=== PATIENT | female | born 1955 | race Caucasian/White ===

== ENCOUNTER 2016-08-05 14:03 | Outpatient (CLI) | payer OTHER ==
--- NOTE | 2016-08-08 20:56 | Mammography Report ---
DIGITAL BILATERAL SCREENING MAMMOGRAM: 08/05/2016 CLINICAL HISTORY: A 60-year-old female in for routine screening mammogram. Patient has no family hi story of breast cancer. Patient has no past history of breast surgeries. COMPARISON: 12/05/2006, 06/01/2011, 06/21/2011, 12/21/2011, 12/12/2012, 02/07/2014, 07/09/2015. TECHNIQUE: Craniocaudad and oblique lateral views of each breast were obtained with [employer] full fie ld digital mammography. FINDINGS: Heterogeneously dense breasts are noted bilaterally. No significant clusters of calcification are seen. No significant masses are noted. No change is se en. IMPRESSION: BREASTS APPEAR RADIOGRAPHICALLY BENIGN. BIRADS CATEGORY: 1, NEGATIVE. RECOMMENDATION: Annual bilateral screening mammography. STANDARD QUALIFYING STATEMENTS 1. This examination was reviewed with the aid of Computed-Aided Detection (CAD). 2. A negative or benign imaging report should not delay biopsy if clinically suspicious findings are present. Consider surgical consultation if warranted. More than 5% of cancers are not identified b y imaging. 3. Dense breasts may obscure an underlying neoplasm. JOB #: [id number] EXT JOB #:[id number]
== END 2016-08-05 14:04 | disposition home or self-care (01) ==
LOC: DI 14:03
PROVIDERS: ATTEND Nurse Practitioner Obstetrics & Gynecology
DX: Z12.31 Encounter for screening mammogram for malignant neoplasm of breast (principal)
CPT/HCPCS: 77067

== ENCOUNTER 2017-09-06 12:38 | Outpatient (CLI) | payer MEDICAID ==
--- NOTE | 2017-09-07 14:57 | Mammography Report ---
Procedure Date: 09/06/2017 Accession Number: [id number] / [id number] Procedure: MEGAN - Screening Mammo Dig Bilat CPT Code: FULL RESULT: EXAM: Screening Mammo Dig Bilat DATE: 09/06/2017 1:07 PM CLINICAL HISTORY: Routine screening TECHNIQUE: Bilateral CC, exaggerated CC and MLO views were obtained. COMPARISON: 08/05/2016, 07/09/2015, 02/07/2014, 12/12/2012 and 12/21/2011 FINDINGS: The breast tissue is heterogeneously dense. There is been no significant interval change. No suspicious masses, skin thickening, clustered microcalcifications, or regions of architectural distortion are identified. IMPRESSION: Negative examination RECOMMENDATION: Routine annual screening unless otherwise clinically indicated. BIRADS CATEGORY 1: Negative STANDARD QUALIFYING STATEMENTS: 1. This examination was reviewed with the aid of Computer-Aided Detection (CAD). 2. A negative or benign imaging report should not delay biopsy if clinically suspicious findings are present. Consider surgical consultation if warrented. More than 5% of cancers are not identified by imaging. 3. Dense breasts may obscure an underlying neoplasm.
== END 2017-09-06 12:39 | disposition home or self-care (01) ==
LOC: DI 12:38
PROVIDERS: ATTEND Nurse Practitioner Family
DX: Z12.31 Encounter for screening mammogram for malignant neoplasm of breast (principal)
CPT/HCPCS: 77067

== ENCOUNTER 2019-11-13 07:49 | Outpatient (CLI) | payer OTHER ==
--- NOTE | 2019-11-20 13:44 | Mammography Report ---
BILATERAL DIGITAL SCREENING MAMMOGRAM 3D/2D: 11/13/2019 CLINICAL: Routine screening. Comparison is made to exams dated: 09/06/2017 mammogram, 08/05/2016 mammogram, 07/09/2015 mammogram, mammogram, 12/21/2011 mammogram, and 12/12/2012 mammogram - [facility]. The tissue of both breasts is heterogeneously dense. This may lower the sensitivity of mammography. No significant masses, calcifications, or other findings are seen in either breast. There has been no significant interval change. IMPRESSION: NEGATIVE There is no mammographic evidence of malignancy. A 1 year screening mammogram is recommended. This exam was interpreted at Station ID: [id number]. NOTE: For mammograms, a report in lay terms will be sent to the patient. Approximately 15% of breast malignancies will not be visualized mammographically. In the management of a palpable breast mass, a negative mammogram must not discourage biopsy of a clinically suspicious lesion. Electronically Signed By: Macario vigli/cris:11/13/2019 09:31:58 ACR BI-RADS Category 1: Negative 3341F PARENCHYMAL PATTERN: (D) - The breast(s) demonstrate(s) heterogeneously dense fibroglandular pankaj humphrey. BI-RADS CATEGORY: (1) - 1 RECOMMENDATION: (ANNUAL) - Recommend routine annual screening mammography. [id number] 1 year screening LATERALITY: (B)
== END 2019-11-13 07:50 | disposition home or self-care (01) ==
LOC: DI 07:49
PROVIDERS: ATTEND Advanced Practice Midwife
DX: Z00.00 Encounter for general adult medical examination without abnormal findings (principal); Z12.31 Encounter for screening mammogram for malignant neoplasm of breast
CPT/HCPCS: 77063; 77067

== ENCOUNTER 2021-02-17 14:50 | Outpatient (CLI) | payer OTHER ==
--- NOTE | 2021-02-18 13:28 | Mammography Report ---
BILATERAL DIGITAL SCREENING MAMMOGRAM 3D/2D WITH EXAGGERATED CC: 02/17/2021 CLINICAL: Routine screening. Comparison is made to exams dated: 11/13/2019 mammogram, 09/06/2017 mammogram, and 08/05/2016 mammogram - [facility]. The tissue of both breasts is heterogeneously dense. This may lower the sensitivity of mammography. No significant masses, calcifications, or other findings are seen in either breast. There has been no significant interval change. IMPRESSION: NEGATIVE There is no mammographic evidence of malignancy. A 1 year screening mammogram is recommended. This exam was interpreted at Station ID: [id number]. NOTE: For mammograms, a report in lay terms will be sent to the patient. Approximately 15% of breast malignancies will not be visualized mammographically. In the management of a palpable breast mass, a negative mammogram must not discourage biopsy of a clinically suspicious lesion. Electronically Signed By: Rizwan Wesley M.D. ar/penrad:02/17/2021 16:29:09 ACR BI-RADS Category 1: Negative 3341F PARENCHYMAL PATTERN: (D) - The breast(s) demonstrate(s) heterogeneously dense fibroglandular pankaj humphrey. BI-RADS CATEGORY: (1) - 1 RECOMMENDATION: (ANNUAL) - Recommend routine annual screening mammography. [id number] 1 year screening LATERALITY: (B)
== END 2021-02-17 14:51 | disposition home or self-care (01) ==
LOC: DI.S 14:50
DX: Z12.31 Encounter for screening mammogram for malignant neoplasm of breast (principal)

== ENCOUNTER 2021-02-24 14:04 | Outpatient (CLI) | payer OTHER ==
--- NOTE | 2021-02-24 14:49 | DEXA Report ---
PROCEDURE: Dexa Spine and/or Hip INDICATIONS: POST MENOPAUSAL TECHNIQUE: Dual energy x-ray absorptiometry (DXA) was performed on a [employer] System. Regions measur ed are the AP Spine, femoral neck, and if needed forearm. COMPARISON: None. FINDINGS: Lumbar Spine: Bone Mineral Density 0.750 g/cm/cm,T score -3.6. Left Hip: Bone Mineral Density 0.682 g/cm/cm,T score -2.6. Left Femoral Neck: Bone Mineral Density 0.684 g/cm/cm, T score -2.5. (T score greater or equal to -1.0: NORMAL) (T score from -1.1 to -2.4: OSTEOPENIA) (T score less than or equal to -2.5 to: OSTEOPOROSIS) Impression: Osteoporosis. Patients with diagnosis of osteoporosis or osteopenia should have regular bone mineral density assess ment. For those eligible for Medicare, routine testing is allowed once every 2 years. Testing frequ ency can be increased for patients who have rapidly progressing disease or for those who are receivin g medical therapy to restore bone mass. Reviewed by: Reed Mendez MD on 02/24/2021 2:47 PM PST Approved by: Reed Mendez MD on 02/24/2021 2:47 PM PST Station ID: [id number]
== END 2021-02-24 14:05 | disposition home or self-care (01) ==
LOC: DI 14:04
PROVIDERS: ATTEND Nurse Practitioner Women's Health
DX: Z13.820 Encounter for screening for osteoporosis (principal); M81.0 Age-related osteoporosis without current pathological fracture

== ENCOUNTER 2021-04-24 17:27 | Emergency (ER) | payer OTHER ==
--- NOTE | 2021-04-24 17:58 | ED Physician Documentation ---
History of Present Illness - Stated complaint Stated Complaint: SORE THROAT,BODY ACHES,COUGH - Chief complaint Chief Complaint: Resp - Additonal information Additional information: 65-year-old female presents emergency department for evaluation of low-grade temperature elevations for much of the last 7 to 10 days. She initially had body aches fatigue and sore throat though that has improved. She does persist with a mild somewhat productive cough. She has not yet vaccinated for Covid 19. Denies any history of immune compromise, diabetes or hypertension. No alcohol or tobacco use. Medical history most significant for rosacea for which she takes doxycycline. Review of Systems Constitutional: reports: Fever, Chills, Myalgias Eyes: reports: Reviewed and negative Nose: reports: Congestion, Reviewed and negative Throat: reports: Sore throat Cardiac: denies: Chest pain / pressure, Palpitations Respiratory: reports: Cough. denies: Dyspnea GI: reports: Reviewed and negative. denies: Abdominal Pain, Abdominal Swelling, Nausea, Vomiting : reports: Reviewed and negative. 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 - Present Medications Home Medications: Ambulatory Orders Medication Instructions Recorded Confirmed Eszopiclone 1 tab PO DAILY 10/25/15 10/25/15 - Allergies Allergies/Adverse Reactions: Allergies Allergy/AdvReac Type Severity Reaction Status Date / Time No Known Drug Allergies Allergy Verified 04/24/21 17:33 - Social History Does the pt smoke?: No Smoking Status: Never smoker Does the pt drink ETOH?: No Does the pt have substance abuse?: No - Immunizations Immunizations are current?: Yes PD ED PE NORMAL - General General: Alert and oriented X 3, No acute distress - HEENT HEENT: Atraumatic, Moist mucous membranes - Cardiac Cardiac: RRR, No murmur - Respiratory Respiratory: Other (faint crackles bilateral lower lobes) - Abdomen Abdomen: Normal bowel sounds, Soft, Non tender, Non distended - Back Back: No CVA TTP, No spinal TTP - Derm Derm: Normal color, Warm and dry, No rash - Extremities Extremities: No deformity Results - Vitals Vitals: Vital Signs - 24 hr 04/24/21 17:30 Temperature 36.4 C L Heart Rate 96 Respiratory 18 Rate Blood Pressure 118/53 L O2 Saturation 96 Oxygen O2 Source Room air - Rads (name of study) CXR Radiology: Final report received (no acute process) PD MEDICAL DECISION MAKING - ED course Complexity details: reviewed results, re-evaluated patient, considered differential, d/w patient ED course: 65-year-old female presents emergency department for evaluation of fevers that began about a week ago. She was exposed to somebody who had COVID-19 she is not yet vaccinated. Symptoms began with cough congestion generalized myalgias. She is continued to have low-grade temperature elevations of two 100.8. Occasionally has a dry cough. She does not have any abdominal pain dysuria urgency or frequency. Screening chest x-ray was without acute findings. No hypoxia on room air and reassuring cardiopulmonary auscultation. Deferred urine given lack of urinary symptoms. No abdominal pain was elicited. Suspect that she likely has Covid infection and this test is pending. Patient was encouraged to stay well-hydrated at home. If symptoms not improving over the next few days, she has belly pain, nausea vomiting worsening cough or fevers and she will return to the ER for repeat evaluation. I did encourage her to obtain COVID-19 vaccine when she is able. Departure - Departure Disposition: 01 Home, Self Care Clinical Impression: Fever Qualifiers: Fever type: unspecified Qualified Code(s): R50.9 - Fever, unspecified Condition: Stable Record reviewed to determine appropriate education?: Yes Instructions: ED Viral Syndrome Ch Comments: Yanet you are seen at the bedside because of recent fevers some body aches and cough. We are screening you for COVID-19. Your chest x-ray is unremarkable and does not show any findings to suggest a pneumonia. I do suspect that you have COVID-19 infection. We will notify you if the results are positive though it may take 48 to 72 hours. In general it is important to stay well-hydrated. You can take Tylenol or ibuprofen for any discomfort. If you find that your symptoms are not improving, you have fevers higher than 103, abdominal pain, nausea vomiting, chest pain or shortness of air then please return to the ER for a second evaluation.
--- NOTE | 2021-04-24 18:27 | XRAY Report ---
PROCEDURE: Chest 1 View X-Ray INDICATIONS: chest pain TECHNIQUE: One view of the chest was acquired. COMPARISON: 03/09/2015 FINDINGS: Surgical changes and devices: None. Lungs and pleura: No pleural effusions or pneumothorax. Lungs are clear. Mediastinum: Mediastinal contours appear normal. Heart size is normal. Bones and chest wall: No suspicious bony lesions. Overlying soft tissues appear unremarkable. IMPRESSION: Portable chest within normal limits for age. Reviewed by: Nikos Harris MD on 04/24/2021 5:26 PM [facility] Approved by: Nikos Harris MD on 04/24/2021 5:26 PM [facility] Station ID: [id number]
[2021-04-24 19:08] VITALS: BP 102/64
== END 2021-04-24 19:00 | disposition home or self-care (01) ==
LOC: ED 17:27
DX: U07.1 COVID-19 (principal)
CPT/HCPCS: 99282; 99284

== ENCOUNTER 2022-06-20 07:43 | Outpatient (CLI) | payer OTHER ==
[2022-06-20 07:59] LABS: BASOPHILS % (AUTO) 0.6 %; EOSINOPHILS # (AUTO) 0.1 10^3/uL (0.0-0.7); EOSINOPHILS % (AUTO) 1.5 %; HCT - HEMATOCRIT 39.6 % (37.0-47.0); HGB - HEMOGLOBIN 12.8 g/dL (12.0-16.0); LYMPHOCYTES # (AUTO) 2.1 10^3/uL (1.5-3.5); LYMPHOCYTES % (AUTO) 43.4 %; MEAN CORPUSCULAR HGB CONC 32.3 g/dL (32.0-36.0); MEAN PLATELET VOLUME 10.3 fL (7.9-10.8); MONOCYTES # (AUTO) 0.4 10^3/uL (0.0-1.0); MONOCYTES % (AUTO) 8.8 %; NEUTROPHILS # (AUTO) 2.2 10^3/uL (1.5-6.6); NEUTROPHILS % (AUTO) 45.5 %; PLT - PLATELET COUNT 180 10^3/uL (130-450); RED BLOOD COUNT 4.26 10^6/uL (4.20-5.40); RED CELL DISTRIBUTION WIDTH 12.4 % (12.0-15.0); WHITE BLOOD COUNT 4.8 x10^3/uL (4.8-10.8)
[2022-06-20 08:59] LABS: ALBUMIN/GLOBULIN RATIO 1.3 (1.0-2.2); ALKALINE PHOSPHATASE 63 IU/L (42-121); ALT ALANINE AMINOTRANSFERASE 25 IU/L (10-60); AST ASPARTATE AMINOTRANSFERASE 23 IU/L (10-42); BILIRUBIN,TOTAL 1.4 mg/dL (0.2-1.0); BUN - BLOOD UREA NITROGEN 16 mg/dL (6-20); CARBON DIOXIDE - CO2 28 mmol/L (21-32); CHLORIDE 102 mmol/L (101-111); CHOL/HDL RATIO 2.7 (<4.4); CHOLESTEROL 216 mg/dL; CREATININE 0.7 mg/dL (0.4-1.0); GFR - MDRD 84 (>89); GLUCOSE 93 mg/dL (70-100); HDL CHOLESTEROL 80 mg/dL; LDL CHOLESTEROL,CALCULATED 126 mg/dL; LDL/HDL RATIO 1.6 (<4.4); POTASSIUM 3.9 mmol/L (3.5-5.0); SODIUM 135 mmol/L (135-145); TOTAL PROTEIN 7.1 g/dL (6.7-8.2); TRIGLYCERIDES 48 mg/dL; VLDL CHOLESTEROL 10 mg/dL
== END 2022-06-20 07:44 | disposition home or self-care (01) ==
LOC: LAB 07:43
PROVIDERS: ATTEND Nurse Practitioner Women's Health
DX: Z01.419 Encounter for gynecological examination (general) (routine) without abnormal findings (principal)
CPT/HCPCS: 36415; 80053; 80061; 83721; 84443; 85025

== ENCOUNTER 2022-09-13 10:26 | Outpatient (CLI) | payer OTHER ==
--- NOTE | 2022-09-13 12:40 | DEXA Report ---
PROCEDURE: Dexa Spine and/or Hip INDICATIONS: OSTEOPOROSIS, POST MENOPAUSAL TECHNIQUE: Dual energy x-ray absorptiometry (DXA) was performed on a [employer] System. Regions measur ed are the AP Spine, femoral neck, and if needed forearm. COMPARISON: DEXA, 10/25/2020. FINDINGS: Lumbar Spine: Bone Mineral Density 0.719 g/cm/cm,T score -3.8. Left Femoral Neck: Bone Mineral Density 0.728 g/cm/cm, T score -2.2. Left Hip: Bone Mineral Density 0.680 g/cm/cm,T score -2.6. (T score greater or equal to -1.0: NORMAL) (T score from -1.1 to -2.4: OSTEOPENIA) (T score less than or equal to -2.5 to: OSTEOPOROSIS) Compared with the last exam, the patient's bone density in lumbar spine has decreased by 4.1%. The pa mile's bone density in left hip is unchanged. IMPRESSION: 1. By WHO criteria, this patient has osteoporosis. 2. There is a 4.1% decrease in the patient's bone density in lumbar spine. No significant change in t he patient's bone density of the left hip. Patients with diagnosis of osteoporosis or osteopenia should have regular bone mineral density assess ment. For those eligible for Medicare, routine testing is allowed once every 2 years. Testing frequ ency can be increased for patients who have rapidly progressing disease or for those who are receivin g medical therapy to restore bone mass. Reviewed by: Alissa Justin MD on 09/13/2022 12:39 PM PDT Approved by: Alissa Justin MD on 09/13/2022 12:39 PM PDT Station ID: [id number]
== END 2022-09-13 10:27 | disposition home or self-care (01) ==
LOC: DI 10:26
PROVIDERS: ATTEND Nurse Practitioner Women's Health
DX: Z78.0 Asymptomatic menopausal state (principal); Z13.820 Encounter for screening for osteoporosis; M81.0 Age-related osteoporosis without current pathological fracture